=== PATIENT | female | born 2005 | race African-American/Black ===

== ENCOUNTER 2024-03-18 22:09 | Emergency (ER) | payer OTHER ==
[2024-03-18 22:29] VITALS: O2SAT 98
--- NOTE | 2024-03-18 22:54 | ED Physician Documentation ---
PD HPI LOWER EXT INJURY - Stated complaint Stated Complaint: LT ANKLE PX - Chief complaint Chief Complaint: Trauma Ext - History obtained from History obtained from: Patient - Additional information Additional information: 18-year-old female presents for evaluation of left ankle pain and swelling. States that she twisted her ankle while going down a hill. Notes pain with ambulation, swelling to left aspect of ankle. Denies other accident or injury Review of Systems Constitutional: denies: Fever, Chills Musculoskeletal: reports: Joint pain, Joint swelling. denies: Neck pain, Back pain, Extremity pain, Extremity swelling Neurologic: denies: Generalized weakness, Focal weakness, Numbness PD PAST MEDICAL HISTORY - Past Medical History Past Medical History: No - Past Surgical History Past Surgical History: Yes /OPTICAL ENGINEER: Breast reduction - Present Medications Home Medications: Ambulatory Orders Medication Instructions Recorded Confirmed No Known Home Medications 03/18/24 03/18/24 - Allergies Allergies/Adverse Reactions: Allergies Allergy/AdvReac Type Severity Reaction Status Date / Time No Known Drug Allergies Allergy Verified 03/18/24 22:19 - Social History Does the pt smoke?: No Smoking Status: Former smoker Does the pt drink ETOH?: No Does the pt have substance abuse?: No - Immunizations Immunizations are current?: Yes - POLST Patient has POLST: No PD ED PE NORMAL - Vitals Vital signs reviewed: Yes - General General: Alert and oriented X 3, No acute distress, Well developed/nourished - Respiratory Respiratory: No respiratory distress - Derm Derm: Normal color, Warm and dry, No rash - Extremities Extremities: Other (Left lateral malleoli are tenderness to palpation, palpable DP pulses, sensation and movement intact) - Neuro Neuro: Alert and oriented X 3, immigration case manager 2-12 intact, No motor deficit, Normal speech Results - Vitals Vitals: Vital Signs - 24 hr 03/18/24 03/19/24 22:15 00:22 Temperature 36.8 C Heart Rate 82 78 Respiratory 16 16 Rate Blood Pressure 138/68 H 128/71 O2 Saturation 98 98 Oxygen O2 Source Room air PD Medical Decision Making - ED course Complexity details: reviewed results, re-evaluated patient, considered differential, d/w patient ED course: Left ankle pain. Swelling noted to left lateral malleolus. X-ray showed no acute fracture. Patient given Tylenol and ice pack. Placed in Ruslan wrap bandage. Offered crutches, but patient declined stating that she lives [place] a hill. She requested a walking boot for comfort, which was ordered. Rice instructions counseled at bedside. Departure - Departure Disposition: 01 Home, Self Care Clinical Impression: Ankle sprain Condition: Stable Instructions: ED Sprain Ankle W X Ray Comments: Your x-rays today did not show any fracture. You may take Tylenol and ibuprofen as needed for pain. Apply ice to areas of swelling. Elevate your extremity above heart level to help decrease swelling. Forms: PCP List Discharge Date/Time: 03/19/24 00:22
[2024-03-18] MEDS: ACETAMINOPHEN 325 MG TABLET PO STA (23:02)
--- NOTE | 2024-03-19 00:06 | XRAY Report ---
PROCEDURE: Ankle 3+V LT INDICATIONS: twisted L ankle, c/o pain swelling TECHNIQUE: 2 views of the ankle were acquired. COMPARISON: None. FINDINGS: Bones: No fractures or dislocations. Ankle mortise is normally aligned. No suspicious bony lesions . Soft tissues: No tibiotalar joint effusion. Achilles tendon appears normal. Prominent soft tissue swelling over the lateral malleolus. IMPRESSION: No acute bony abnormality. Soft tissue swelling prominent over the lateral malleolus. Reviewed by: Nam Crawford MD on 03/19/2024 12:05 AM PDT Approved by: Nam Crawford MD on 03/19/2024 12:05 AM PDT Station ID: [id number]
[2024-03-19 00:24] VITALS: BP 128/71
== END 2024-03-19 00:22 | disposition home or self-care (01) ==
LOC: ED 22:09
DX: S93.402A Sprain of unspecified ligament of left ankle, initial encounter (principal); X50.1XXA Overexertion from prolonged static or awkward postures, initial encounter
CPT/HCPCS: 73610; 99283; A9270

== ENCOUNTER 2024-11-21 20:09 | Inpatient (IN) ==
[2024-11-21] MEDS ORDERED: OXYTOCIN/SODIUM CHLORIDE 500 ML IV PRN (21:29)
[2024-11-21] MEDS ORDERED: lidocaine 1% 20 ML MDV ID PRN (21:29)
[2024-11-21] MEDS ORDERED: hydrALAZINE INJ 20 MG/ML VIAL IVP PRN ×2 (21:29)
[2024-11-21] MEDS ORDERED: LABETALOL 20 MG/4 ML SYRINGE IVP PRN ×3 (21:29)
[2024-11-21] MEDS ORDERED: NIFEdipine 10 MG CAPSULE PO PRN (21:29)
[2024-11-21] MEDS ORDERED: CARBOPROST TROMETHAMINE 250 MCG/ML VIAL IM PRN (21:29)
[2024-11-21] MEDS ORDERED: miSOPROStoL 200 MCG TABLET BC PRN (21:29)
[2024-11-21] MEDS ORDERED: SODIUM CHLORIDE FLUSH 0.9% 10 ML SYRINGE IVP PRN (21:29)
[2024-11-21] MEDS ORDERED: LACTATED RINGERS 1,000 ML IV PRN (21:29)
[2024-11-21] MEDS ORDERED: OXYTOCIN 10 UNIT/ML VIAL IM PRN (21:29)
--- NOTE | 2024-11-21 21:29 | HISTORY & PHYSICAL EXAMINATION ---
Admit History Smoking Status: Former smoker Meds/Allgy Home Medications Ambulatory Orders Medication Instructions Recorded Confirmed vits no.126-ferrous fum tab PO .DAILY 05/26/24 11/20/24 28 mg iron-folic acid 800 mcg tablet (Classic ) Allergies Allergies Allergy/AdvReac Type Severity Reaction Status Date / Time Pork/Porcine Containing Allergy Respiratory Verified 11/13/24 11:17 Products PFSH Active Problems All Active Problems (Updated 11/21/24 @ 21:33 by Martha Ball CNM, KRISH) Pre-eclampsia during in third trimester, antepartum (Acute) Isolated proteinuria (Acute) Supervision of normal first (Acute) Positive test (Acute) Medical History Medical History (Updated 11/21/24 @ 21:33 by Martha Ball CNM, KRISH) Encounter for other specified screening Urinary tract infection Depression Surgical History Surgical History (Updated 05/26/24 @ 14:04 by Vandana Domínguez RN) History of bilateral breast reduction surgery Family History Family History (Updated 05/26/24 @ 14:05 by Vandana Domínguez RN) Mother Cervical cancer Maternal grandmother Breast cancer Paternal grandmother Breast cancer Maternal grandfather Diabetes Paternal grandfather Diabetes Social History Social History (Updated 05/26/24 @ 14:06 by Vandana Domínguez RN) Smoking Status: Former smoker Second hand tobacco smoke exposure: No Do you dip or chew tobacco?: No Do you vape?: No Living arrangement: At home Living Condition: With spouse/s.o. Level: Independent Do you feel safe in your home environment?: Yes Suffered physical, verbal, emotional, or financial abuse?: No History of Abuse: No ETOH Use: None Substance Use: denies use Are you sexually active?: Yes Control Method: None Sexual Practice Notes: Currently Occupation: Homemaker. Previously a caregiver POLST Patient has POLST: No Plan for Labor Plan For Labor I expect patient to be DC'd or transferred within 96 hours.: Yes Plan for Labor: Devaughn is a 19yo @ 36.6wks gestation by LMP c/w at home IUI. She reports a rare contraction but denies any consistent contractions. She denies vaginal bleeding or leakage of fluid. She reports +FM. She denies headaches, visual disturbances, RUQ ore epigastric pain. Upon arrival cervix is 1/50/-3 and vertex with intact membranes. FHR demonstrates a Category I pattern. Her has been complicated by isolated proteinuria with onset at 32wks. She was referred to [facility] at that time and the below recommendations were given: Recommendations: -Monitor for s/sx of preeclampsia, if BP elevated >140/90, repeat PEC lab and PCR -If PCR or 24hr urine >3g, may need to consider LMWH to decrease risk of VTE -Consider 3hr GTT secondary to elevated 1hr (139) (completed 11/10/2024 and WNL) -No indication for testing at this time -Nephrology referral: consider intensive kidney work up with possible renal biopsy -Delivery at term -Continue routine care -PCR q visit She had her 1st elevated BP at [facility] 11/19/2024 after she was sent there for rule out rupture of membranes due [facility]. The ROM was negative however she was noted to have elevated blood pressure for the first time measuring 143/92. She was seen in the clinic the following day and her second elevated BP 11/20/2024 in clinic was 146/83. Secondarily she meets criteria for preeclampsia without severe features. Consult with information resources manager physician who recommends pre-induction cervical ripening in the evening of 36.6wks gestation, which is today. Reviewed [facility] recommendation to consider anticoagulation with PCR >3g and Dr. Jacob recommends not initiating at this time due to admission with induction of labor and impending delivery. Will pay close attention to patient mobility status and initiate SCDs with epidural. She will be admitted to [facility] for pre-induction cervical ripening with misoprostol per patient preference. We discussed cervical ripening balloon placement and pt declines at this time. She states she would prefer to initiate oral misoprostol x12hrs and reevaluate cervical exam tomorrow morning with placement of cervical ripening balloon at that time if needed. She is supported by her partner, her mom, and her sister. Dating criteria: LMP: 03/08/2024 MÓNICA by LMP: 12/13/2024 IUI: 03/19/2024 Final MÓNICA: 12/13/2024 Allergies: NKDA RX PNV PROBLEMS: -Proteinuria: -[facility] consult @ 33.5wks. Recommendations: -Monitor for s/sx of preeclampsia, if BP elevated >140/90, repeat PEC lab and PCR -If PCR or 24hr urine >3g, may need to consider LMWH to decrease risk of VTE -Consider 3hr GTT secondary to elevated 1hr (139) (completed 11/10/2024 and WNL) -No indication for testing at this time -Nephrology referral: consider intensive kidney work up with possible renal biopsy -Delivery at term -Continue routine care -PCR q visit Medical Hx: depression Surgical Hx: bilateral breast reduction Social Hx: Former smoker. No ETOH or IVDA. Reports she is safe at home. Partner Mo is active duty [place]. She is currently a homemaker (previously a caregiver). Family Hx: Cervical cancer - mother; Breast cancer - MGM, PGM; Diabetes - MGF, PGF Pre- weight: 227 BMI: 34.5 Blood type: O+ Antibody screen: Negative CBC: PLT 296 HCT 37.7 HGB 12.3 Rubella: Immune VZV: immune HBsAg: neg HepC: NR RPR/AB-EIA: NR HIV: NR Flu: 07/25/2024 COVID: PAP: (age) GC/CT: 06/29/2024 negative HSV: Denies in self or partner. Genetic Testing: NIPT negative AFP negative FAS: Placenta: Posterior Cord: 3VC w/ MARGINAL CORD INSERTION [place]: 14.7 EFW: 615g 86%tile 10/30 U/S @33.5wks with MFM -Marginal cord insertion 1.1cm from placental age -EFW 74%tile 50gm GCT: 139 3 hr GTT: F- 91; 1hr 165; 2hr 132 ; 3hr 75 (WNL) TDAP: 09/26/2024 Breast Pump: 09/26/2024 3rd trimester CBC 338 36.1/11.7 3rd trimester RPR NR Delivery plan: Hopeful for unmedicated delivery with nitrous, open to epidural; contraception: same sex partner Physical exam: Normocephalic, atraumatic Heart RRR w/o M/G/R Lungs CTAB Abdomen gravid, soft, nontender EFW 3400g FHR baseline 140s, moderate variablity, + accels, no decels No contractions appreciated via tocometry SVE 1/50/-3, vertex. Intact membranes. Bilateral LE's trace edema. DTRs 1+, no clonus. Mood is good. Assessment: 19yo @ 36.6wks gestation Pre-eclampsia without severe features GBS -pending FHR Category I Plan: Admit to [facility] for pre-induction cervical ripening with 50mcg BC misoprostol q 4hrs. Consider cervical ripening balloon after 12 hours of misoprostol or sooner PRN. Pre-eclampsia labs ordered now-results pending. Encouraged ambulation and position changes. Jacuzzi PRN. Nitrous oxide PRN. Epidural per maternal request - SCDs with epidural. Anticipate .
[2024-11-21 21:43] LABS: BASOPHILS % (AUTO) 0.1 %; EOSINOPHILS # (AUTO) 0.1 10^3/uL (0.0-0.7); EOSINOPHILS % (AUTO) 1.2 %; HCT - HEMATOCRIT 35.5 % (37.0-47.0); HGB - HEMOGLOBIN 11.3 g/dL (12.0-16.0); LYMPHOCYTES # (AUTO) 1.9 10^3/uL (1.5-3.5); LYMPHOCYTES % (AUTO) 24.8 %; MEAN CORPUSCULAR HEMOGLOBIN 27.6 pg (27.0-31.0); MEAN CORPUSCULAR HGB CONC 31.8 g/dL (32.0-36.0); MEAN CORPUSCULAR VOLUME 86.6 fL (81.0-99.0); MEAN PLATELET VOLUME 9.1 fL (7.9-10.8); MONOCYTES # (AUTO) 0.6 10^3/uL (0.0-1.0); MONOCYTES % (AUTO) 7.7 %; NEUTROPHILS # (AUTO) 4.9 10^3/uL (1.5-6.6); NEUTROPHILS % (AUTO) 65.7 %; PLT - PLATELET COUNT 323 10^3/uL (130-450); RED CELL DISTRIBUTION WIDTH 14.9 % (12.0-15.0); WHITE BLOOD COUNT 7.5 x10^3/uL (4.8-10.8)
[2024-11-21 21:48] LABS: ALBUMIN/GLOBULIN RATIO 0.9 (1.0-2.2); BILIRUBIN,TOTAL 0.3 mg/dL (0.2-1.0); CALCIUM 9.1 mg/dL (8.5-10.3); CREATININE 0.6 mg/dL (0.6-1.3); POTASSIUM 4.2 mmol/L (3.5-4.5); TOTAL PROTEIN 6.4 g/dL (6.4-8.9)
[2024-11-21] MEDS: miSOPROStoL 100 MCG TABLET BC SCH (22:11)
[2024-11-21 22:20] LABS: CREATININE,URINE 92.4 mg/dL
[2024-11-21 22:30] LABS: PROTEIN/CREATININE RATIO,URINE 4.2 (<=0.2)
--- NOTE | 2024-11-22 10:44 | PROVIDER PROGRESS NOTE ---
Labor Progress Note Labor Progress Note Labor Progress Note/Additional Text: S: Slept well last night. Open to cervical ripening balloon placement if needed. Denies RIVERA, visual disturbances, RUQ or epigastric pain. Partner Mo supportive at the bedside. O: FHR baseline 140s, moderate variability, + accels, no decels Contractions palpate mild occasionally with soft resting tone SVE 2/50/-3. Vertex. Cervical ripening balloon placed with 80cc intrauterine and 80cc vaginal A: 19yo @ 37.0wks gestation Pre-eclampsia without severe features GBS - pending FHR Category I P: Cervical ripening balloon x 12hrs. Encouraged ambulation and position changes. Jacuzzi PRN. Nitrous oxide PRN. Epidural per maternal request - SCDs with epidural. Catheter sample PCR with placement of bolivar s/p epidural placement. Anticipate .
[2024-11-22] MEDS: fentaNYL 100 MCG/2 ML VIAL IVP PRN (11:05)
--- NOTE | 2024-11-22 11:32 | PHARMACY PROGRESS NOTE ---
Best Possible Medication History Admit Date and Time: 11/21/249 Home Medications Medication Instructions Recorded Confirmed Type vits no.126-ferrous fum 1 tab PO DAILY 05/26/24 11/22/24 History 28 mg iron-folic acid 800 mcg tablet (Classic ) Processed by: Pharmacy (Medication reconciliation completed by Diabetes Education CoordinatorCatarina) Medications reviewed in ED?: No Medication History completed: Yes Patient Interview: Completed Secondary Source(s): Insurance records [facility] Statement: As the person ultimately responsible for medication therapy, providers are able to order a medication from an existing home medication list in [facility] via the "Reconcile Routine" prior to Confirmation of that medication by software support technician. Such practice is discouraged except when the physician, in their clinical judgment, deems that a medical need exists for a medication without regard to previous use.
[2024-11-22] MEDS: LACTATED RINGERS 500 ML IV ONE (16:00)
[2024-11-22] MEDS ORDERED: LIDOCAINE 2%-EPI 1:100000 20 ML MDV ONE (16:16)
[2024-11-22] MEDS ORDERED: ROPIVACAINE 0.2% 200 MG/100 ML BAG EP ONE (16:16)
--- NOTE | 2024-11-22 16:25 | PROVIDER PROGRESS NOTE ---
Labor Progress Note Labor Progress Note Labor Progress Note/Additional Text: S: Patient becoming increasingly uncomfortable. S/P 3 doses of misoprostol. Supportive partner and family at beside. O: Category I tracing. FHT 145, moderate variability, + accelerations, no significant decelerations. Contractions q 1-6, palpate moderately, soft uterine resting tone. BP 140-150's/80's-90's. No severe range pressures. 6/80/-2 A: Active labor Medical induction of labor for preeclampsia significant urine proteinurea P: AROM, large amount of clear fluid. Anesthesia notified for placement of epidural for pain management. continuous monitoring continues Will encouraged rotation in bed on peanut ball after patient is comfortable with epidural. Anticipate .
--- NOTE | 2024-11-22 17:22 | ANESTHESIA PROCEDURE NOTE ---
Pre-Anesthesia VS, & Labs Diagnosis Surgical Diagnosis:: 37 weeks induction, for protienuria, htn Procedure Procedure: placement of labor epidural Vitals Height (in): 5 ft 8 in Weight (kg): 122 kg Body Mass Index: 40.8 BMI Classification: Morbidly Obese NPO Last Fluid Intake: current Is Patient ?: Yes Estimated Due Date:: 11/22/24 Lab Results Current Lab Results: Laboratory Tests 11/21/24 21:20: WBC 7.5, RBC 4.10 L, Hgb 11.3 L, Hct 35.5 L, MCV 86.6, MCH 27.6, MCHC 31.8 L, RDW 14.9, Plt Count 323, MPV 9.1, Neut # (Auto) 4.9, Lymph # (Auto) 1.9, [place] # (Auto) 0.6, Eos # (Auto) 0.1, Baso # (Auto) 0.0, Absolute Nucleated RBC 0.00, Nucleated RBC % 0.0, Sodium 136, Potassium 4.2, Chloride 106, Carbon Dioxide 23, Anion Gap 7.0, BUN 9, Creatinine 0.6, Estimated GFR (MDRD) 153, Glucose 102, Calcium 9.1, Total Bilirubin 0.3, AST 22, ALT 26, Alkaline Phosphatase 117, Total Protein 6.4, Albumin 3.0 L, Globulin 3.4, A lbumin/Globulin Ratio 0.9 L, Blood Type O POSITIVE, Antibody Screen NEGATIVE Lab results reviewed: Yes 11/21/24 21:20 11/21/24 21:20 Meds/Allgy Home Medications Ambulatory Orders Medication Instructions Recorded Confirmed vits no.126-ferrous fum 1 tab PO DAILY 05/26/24 11/22/24 28 mg iron-folic acid 800 mcg tablet (Classic ) Allergies Allergies Allergy/AdvReac Type Severity Reaction Status Date / Time Pork/Porcine Containing Allergy Respiratory Verified 11/13/24 11:17 Products PFSH Active Problems All Active Problems Pre-eclampsia during in third trimester, antepartum (Acute) Isolated proteinuria (Acute) Supervision of normal first (Acute) Positive test (Acute) Medical History Medical History Encounter for other specified screening Urinary tract infection Depression Surgical History Surgical History History of bilateral breast reduction surgery Family History Family History Mother Cervical cancer Maternal grandmother Breast cancer Paternal grandmother Breast cancer Maternal grandfather Diabetes Paternal grandfather Diabetes Social History Social History Smoking Status: Never smoker Second hand tobacco smoke exposure: No Do you dip or chew tobacco?: No Do you vape?: No Living arrangement: At home Living Condition: With spouse/s.o. Level: Independent Do you feel safe in your home environment?: Yes Suffered physical, verbal, emotional, or financial abuse?: No History of Abuse: No ETOH Use: None Substance Use: denies use Are you sexually active?: Yes Control Method: None Sexual Practice Notes: Currently Occupation: Homemaker. Previously a caregiver POLST Patient has POLST: No Anesthesia Exam (Expanded) Exam General: Alert and No acute distress Dental: WNL Mouth Openin Fingerbreadth Neck Mobility: Normal Mallampati classification: II Thyromental Distance: 4-6 cm Plan Plan Anesthesia Type: Epidural Consent for Procedure(s) Verified and Reviewed: Yes Code Status: Attempt Resuscitation ASA Classification ASA classification: 2-Mild systemic disease Is this case an emergency?: No
[2024-11-22] MEDS ORDERED: METOCLOPRAMIDE 10 MG/2 ML VIAL IVP PRN (17:23)
[2024-11-22] MEDS ORDERED: ONDANSETRON 4 MG/2 ML VIAL IVP PRN (17:23)
[2024-11-22] MEDS ORDERED: diphenhydrAMINE INJ 50 MG/ML VIAL IVP PRN (17:23)
[2024-11-22] MEDS ORDERED: NALBUPHINE 10 MG/ML AMP IVP PRN (17:23)
[2024-11-22] MEDS ORDERED: ePHEDrine 50 MG/ML VIAL IVP PRN (17:23)
[2024-11-22] MEDS ORDERED: NALOXONE 0.4 MG/ML VIAL IVP PRN (17:23)
[2024-11-22 17:56] LABS: BASOPHILS % (AUTO) 0.1 %; EOSINOPHILS % (AUTO) 0.3 %; HCT - HEMATOCRIT 35.7 % (37.0-47.0); HGB - HEMOGLOBIN 11.5 g/dL (12.0-16.0); LYMPHOCYTES # (AUTO) 1.2 10^3/uL (1.5-3.5); LYMPHOCYTES % (AUTO) 13.8 %; MEAN CORPUSCULAR HEMOGLOBIN 27.8 pg (27.0-31.0); MEAN CORPUSCULAR HGB CONC 32.2 g/dL (32.0-36.0); MEAN CORPUSCULAR VOLUME 86.4 fL (81.0-99.0); MEAN PLATELET VOLUME 8.9 fL (7.9-10.8); MONOCYTES # (AUTO) 0.6 10^3/uL (0.0-1.0); MONOCYTES % (AUTO) 6.8 %; NEUTROPHILS # (AUTO) 6.9 10^3/uL (1.5-6.6); NEUTROPHILS % (AUTO) 78.1 %; PLT - PLATELET COUNT 321 10^3/uL (130-450); RED BLOOD COUNT 4.13 10^6/uL (4.20-5.40); RED CELL DISTRIBUTION WIDTH 14.7 % (12.0-15.0); WHITE BLOOD COUNT 8.8 x10^3/uL (4.8-10.8)
[2024-11-22 18:09] LABS: ALBUMIN 2.9 g/dL (3.2-5.5); ALBUMIN/GLOBULIN RATIO 0.8 (1.0-2.2); BILIRUBIN,TOTAL 0.4 mg/dL (0.2-1.0); CALCIUM 9.3 mg/dL (8.5-10.3); CREATININE 0.7 mg/dL (0.6-1.3); POTASSIUM 4.4 mmol/L (3.5-4.5); TOTAL PROTEIN 6.6 g/dL (6.4-8.9)
[2024-11-22] MEDS: SODIUM CHLORIDE FLUSH 0.9% 10 ML SYRINGE IVP SCH (18:33)
[2024-11-22] MEDS: OXYTOCIN/SODIUM CHLORIDE 500 ML IV SCH (18:34)
--- NOTE | 2024-11-22 20:26 | PROVIDER PROGRESS NOTE ---
Labor Progress Note Labor Progress Note Labor Progress Note/Additional Text: SVE /-1, ruptured. Very comfortable with epidural. Frustrated by the limited labor progression the last few hours. worried the epidural has slowed down her labor. Reassured she is making cervical change. RN team having difficulty tr acing contractions. IUPC placed and patient and family felt reassuance once contractions were identified by IUPC.
[2024-11-22] MEDS: AMPICILLIN 2 GM in SODIUM CHLORIDE 0.9% MINIBAG 100 ML IV ONE (20:27)
[2024-11-23] MEDS: AMPICILLIN 1 GM in SODIUM CHLORIDE 0.9% MINIBAG 100 ML IV SCH (00:37)
[2024-11-23] MEDS: ROPIVACAINE 0.2% 200 MG/100 ML BAG EP PRN (02:12)
[2024-11-23] MEDS: LACTATED RINGERS 1,000 ML IV PRN (02:20)
[2024-11-23] MEDS ORDERED: ACETAMINOPHEN 500 MG TABLET PO ONE (02:54)
[2024-11-23] MEDS: ACETAMINOPHEN 500 MG TABLET PO PRN ×2 (03:05→20:18)
[2024-11-23] MEDS: ONDANSETRON 4 MG/2 ML VIAL IVP PRN (04:55)
[2024-11-23] MEDS ORDERED: LIDOCAINE 2%-EPI 1:100000 20 ML MDV ONE (05:14)
[2024-11-23] MEDS ORDERED: ROPIVACAINE 0.2% 200 MG/100 ML BAG EP ONE (05:14)
--- NOTE | 2024-11-23 05:54 | PROVIDER PROGRESS NOTE ---
Labor Progress Note Labor Progress Note Labor Progress Note/Additional Text: Patient was having significant discomfort at the site of her epidural and has asked for it to be removed. She was frustrated and felt that the epidural had slowed her labor progress. Reviewed that her labor has continued to progress. Di scussed at length that her pain will likely come back rapidly, and it will be difficult for her body to adjust to the pain returning that quickly. She verbalized understanding and continued to express her desire for the epidural to be removed. Prior to this, she had asked that the IUPC be removed as well as it was causing her discomfort. Without IUPC it has been difficult for nursing to titrate her pitocin as contractions have not been consistently/easily traceable with external monitoring and it was difficult to titrate her pitocin/determine adequate pattern. She had also respectfully asked for a change in her nursing care team. She had good pain control for about 75 minutes following cessation of epidural and dozed. However the pain returned quickly and she became nauseated and had several near syncopal events while lying in bed. Her heart rate, pulse oximetry and BP remained WNL during this time. Her family shared that she often "faints" with excessive heat or pain, more so prior to but did have an episode during . Her has a spray bottle available and is able to mist her with cool water and that has consistently resolved the syncopal episodes in the past. However she was arousable and was able to verbalized orientation. She tried the nitrous oxide during this time with minimal relief. SVE /0, requesting a c/s for pain management. Discussed that her labor is progressing, her baby and her are stable and asked the rationale she desires a c/s. She report the pain was too intense and she wanted a c/s for pain relief. I had asked if her pain was better controlled if she would still prefer a c/s and she stated she just wanted the pain to be better. Anesthesia called to replace the epidural. Upon ROOMING HOUSE INSPECTOR's arrival she had become grossly uncomfortable. Offered repeat SVE prior to attempted replacement. She declined SVE until epidural replaced. She understood that she would need to sit still for safety during replacement. She felt that she would be able to.
[2024-11-23] MEDS: TRANEXAMIC ACID IN NACL 1,000 MG/100 ML BAG IV PRN (07:36)
--- NOTE | 2024-11-23 09:06 | DELIVERY NOTE ---
Delivery Note Delivery Comments (Free Text/Narrative) Delivery Comments (Free Text/Narrative): This 19 -year-old, presented at 36+6 weeks gestation by known LMP for preinduction cervical ripening at 36+6 weeks in stable condition on 11/21/2024 @ 1999. Cervix was 1/50% and Vertex presentation by hugo's and exam. GBS unresulted in labor but resulted negative post delivery, adequately treated. Cervical ripening and induction as follows: Misoprostol X 3 doses, cervical ripening balloon placement and expulsion, followed by oxytocin administration with max infusion of 5 mu/min. FHR pattern demonstrated 140 baseline in a category I prior to second stage. She did have a single isolated maternal temp of 100.4 and was given 1000mg PO tylenol, with no further elevated temperatures. No odor noted to amniotic fluid, no tachycardia, CBC twelve hour prior to delivery with WBC 8.8, no diagnosis of chorioamnitis. Epidural placed and removed and replaced upon request. AROM occurred 11/22/2024 @ 1609. She then progressed to complete/complete and second stage began 11/23/2024 @ 0701. : Normal spontaneous vaginal delivery of a viable male infant on 11/23/2024 @ 0730. No nuchal cord, but cord was wrapped loosely around the arm (delivered through). The was placed on maternal abdomen, stimulated, dried and placed skin to skin. Apgars 7&9 @ 1&5 minutes. The umbilical cord was allowed to stop pulsating at which time it was doubly clamped by delivering provider and cut by baby's second Mom, Mo. 3VC. Cord blood was obtained. Fundal massage and gently cord traction applied for active management of the third stage, placenta delivered spontaneously and intact and appeared normal. 400cc EBL. Placenta was not sent to pathology. Pitocin administered via IV for hemostasis and allowed to run freely. Increased bleeding immediately following placenta delivery, and 1g of TXA was administered at 0736. Uterine massage was performed until uterus was deemed firm. weight 2898g. Inspection of the perineum noted to be intact. No repair. Upon re-inspection the patient was hemostatic. Uterus again massaged and found to be firm. Needle and sponge counts were correct. Uterine fundus firm and there is no excessive bleeding. Tissues well approximated. Skin to skin initiated. Family bonding well. Both mother and baby are in stable condition.
[2024-11-23] MEDS ORDERED: LABETALOL 5 MG/1 ML 20 ML MDV IVP PRN (10:33)
[2024-11-23] MEDS ORDERED: LABETALOL 20 MG/4 ML SYRINGE IVP PRN ×2 (10:33)
[2024-11-23] MEDS ORDERED: OXYTOCIN/SODIUM CHLORIDE 500 ML IV PRN (10:33)
[2024-11-23] MEDS ORDERED: NIFEdipine 10 MG CAPSULE PO PRN (10:33)
[2024-11-23] MEDS ORDERED: NALOXONE 0.4 MG/ML VIAL IVP PRN (10:33)
[2024-11-23] MEDS ORDERED: hydrALAZINE INJ 20 MG/ML VIAL IVP PRN ×2 (10:33)
[2024-11-23] MEDS ORDERED: SIMETHICONE CHEW 80 MG TABLET PO PRN (10:33)
[2024-11-23] MEDS: ACETAMINOPHEN 500 MG TABLET PO SCH (11:08)
[2024-11-23] MEDS: IBUPROFEN 600 MG TABLET PO PRN (11:08)
[2024-11-23] MEDS: PRENATAL VITAMIN TABLET PO SCH (11:13)
[2024-11-23] MEDS: DOCUSATE SODIUM 100 MG CAPSULE PO SCH (20:19)
--- NOTE | 2024-11-24 05:05 | PROVIDER PROGRESS NOTE ---
Subjective Subjective Subjective: HPI: PPD #1 Denies headache, change in vision, nausea/vomiting or right upper quadrant pain. BP 130's-140's/80-90's Most recent BP: 136/93 @ 0430 today Most recent labs: 11/22/2024 @ 1748 PLT: 321 Serum Creatinine: 0.7 AST: 25 ALT: 24 11/24/2024 @ 0900 (ordered/pending) Physical Exam Constitutional: alert, no acute distress, well hydrated, well developed, well nourished, appropriate dress. Cardiovascular: 2+ edema bilateral lower extremities Respiratory: no respiratory distress. Abdomen: nondistended, nontender, no guarding. Neuro: 1+ DTRs, no clonus Psych: affect and mood appropriate, normal interaction, good eye contact. Assessment & plan 19 yo PPD #1 s/p viable male at 37+1 weeks gestation following medical IOL. Intact perineum Routine care and support Preeclampsia without severe features Labs ordered/pending start labetalol 100mg BID while in hospital, discharge to home likely Wednesday with planned short interval follow up in clinic for BP check and significant pre-eclamptic precautions. Current Medications Current Medications Current Medications: Current Medications Generic Name Dose Route Start Last Admin Trade Name Freq PRN Reason Stop Dose Admin Acetaminophen 1,000 mg 11/23/24 06:00 11/23/24 11:08 Acetaminophen 500 Mg Tablet PO 11/24/24 05:59 1,000 mg ONCE JEFF Administration Acetaminophen 1,000 mg 11/23/24 10:33 11/23/24 20:18 Acetaminophen 500 Mg Tablet PO 1,000 mg Q8HR PRN Administration Mild Pain or Fever>38C(100.4F) Carboprost Tromethamine 250 mcg 11/21/24 21:29 Carboprost Tromethamine 250 Mcg/Ml Vial IM 11/26/24 21:29 Q15M PRN Step 4: Hemorrhage protocol Docusate Sodium 100 mg 11/23/24 21:00 11/23/24 20:19 Docusate Sodium 100 Mg Capsule PO 100 mg BID JEFF Administration Ibuprofen 600 mg 11/23/24 10:33 11/24/24 02:03 Ibuprofen 600 Mg Tablet PO 600 mg Q6HR PRN Administration Moderate Pain (Level 4-6) Lidocaine HCl 20 ml 11/21/24 21:29 Lidocaine 1% 20 Ml Mdv ID 11/26/24 21:29 .ONCE PRN PERINEAL REPAIR Misoprostol 800 mcg 11/21/24 21:29 Misoprostol 200 Mcg Tablet BC 11/26/24 21:29 .ONCE PRN Step 3: Hemorrhage protocol Nifedipine 10 - 20 mg 11/21/24 21:29 Nifedipine 10 Mg Capsule PO Q20M PRN SBP >160 or DBP >110 Protocol Oxytocin 10 unit 11/21/24 21:29 Oxytocin 10 Unit/Ml Vial IM 11/26/24 21:29 .ONCE PRN Step one: If no IV access Multivit/Folic Acid/Iron 1 tab 11/23/24 08:00 11/23/24 11:13 Vitamin Tablet PO 1 tab DAILYWM JEFF Administration Simethicone 80 mg 11/23/24 10:33 Simethicone Chew 80 Mg Tablet PO TID PRN Gas Objective Vital Signs/Intake & Output Vital Signs: Vital Signs x48h Temp Pulse Resp BP Pulse Ox 11/24/24 04:15 36.4 C L 70 18 136/93 H 97 11/24/24 00:00 37.4 C 86 18 143/69 H 98 11/23/24 22:45 148/66 H Intake & Output: Intake & Output 11/21/24 11/22/24 11/23/24 11/24/24 23:59 23:59 23:59 23:59 Intake Total 111 / 111 689 / 689 Output Total 325 / 325 3075 / 3075 Balance -214 / -214 -2386 / -2386 Weight (kg) 269 lb 5.984 oz 268 lb 15.423 oz Lab Results 11/22/24 17:48 11/22/24 17:48
[2024-11-24 08:44] LABS: BASOPHILS % (AUTO) 0.1 %; EOSINOPHILS # (AUTO) 0.1 10^3/uL (0.0-0.7); EOSINOPHILS % (AUTO) 1.2 %; HCT - HEMATOCRIT 28.7 % (37.0-47.0); HGB - HEMOGLOBIN 9.4 g/dL (12.0-16.0); LYMPHOCYTES # (AUTO) 2.7 10^3/uL (1.5-3.5); MEAN CORPUSCULAR HEMOGLOBIN 28.4 pg (27.0-31.0); MEAN CORPUSCULAR HGB CONC 32.8 g/dL (32.0-36.0); MEAN CORPUSCULAR VOLUME 86.7 fL (81.0-99.0); MONOCYTES # (AUTO) 0.7 10^3/uL (0.0-1.0); MONOCYTES % (AUTO) 6.8 %; NEUTROPHILS # (AUTO) 6.7 10^3/uL (1.5-6.6); NEUTROPHILS % (AUTO) 65.1 %; PLT - PLATELET COUNT 291 10^3/uL (130-450); RED BLOOD COUNT 3.31 10^6/uL (4.20-5.40); WHITE BLOOD COUNT 10.3 x10^3/uL (4.8-10.8)
[2024-11-24] MEDS: LABETALOL 100 MG TABLET PO SCH (08:56)
[2024-11-24 09:03] LABS: ALBUMIN 2.5 g/dL (3.2-5.5); ALBUMIN/GLOBULIN RATIO 0.8 (1.0-2.2); BILIRUBIN,TOTAL 0.3 mg/dL (0.2-1.0); CREATININE 0.6 mg/dL (0.6-1.3); POTASSIUM 3.9 mmol/L (3.5-4.5); TOTAL PROTEIN 5.6 g/dL (6.4-8.9)
[2024-11-24 17:09] VITALS: O2SAT 98
[2024-11-25 09:26] VITALS: BP 131/79; TEMP 98.1
--- NOTE | 2024-11-25 09:44 | Discharge Summary ---
Discharge Summary Admit Date: 11/21/24 Discharge Date: 11/25/24 HPI History of Present Illness: Date of Admission: 11/21/2024 Date of Discharge: 11/25/2024 Diagnosis on admission: 19yo @ 36.6wks gestation Pre-eclampsia without severe features GBS -pending FHR Category I Diagnosis on Discharge 19 yo S/P 11/23/2024 Preeclampsia without severe features GBS resulted negative/ adequate treatment in labor. Physical exam: Normocephalic, atraumatic Lungs no increased work of breathing Normal uterine involution, FF below umbilicus Small rubra bleeding very little perineal discomfort. Bilateral LE's 2+ edema Mood is good. Brief History: This 19 -year-old, presented at 36+6 weeks gestation by known LMP for preinduction cervical ripening at 36+6 weeks in stable condition on 11/21/2024 @ 2000. Cervix was 1/50% and Vertex presentation by hugo's and exam. GBS unresulted in labor but resulted negative post delivery, adequately treated. Cervical ripening and induction as follows: Misoprostol X 3 doses, cervical ripening balloon placement and expulsion, followed by oxytocin administration with max infusion of 5 mu/min. FHR pattern demonstrated 140 baseline in a category I prior to second stage. She did have a single isolated maternal temp of 100.4 and was given 1000mg PO tylenol, with no further elevated temperatures. No odor noted to amniotic fluid, no tachycardia, CBC twelve hour prior to delivery with WBC 8.8, no diagnosis of chorioamnitis. Epidural placed and removed and replaced upon request. AROM occurred 11/22/2024 @ 1609. She then progressed to complete/complete and second stage began 11/23/2024 @ 0701. : Normal spontaneous vaginal delivery of a viable male on 11/23/2024 @ 0730. No nuchal cord, but cord was wrapped loosely around the arm (delivered through). The was placed on maternal abdomen, stimulated, dried and placed skin to skin. Apgars 7&9 @ 1&5 minutes. The umbilical cord was allowed to stop pulsating at which time it was doubly clamped by delivering provider and cut by baby's second Mom, Mo. 3VC. Cord blood was obtained. Fundal massage and gently cord traction applied for active management of the third stage, placenta delivered spontaneously and intact and appeared normal. 400cc EBL. Placenta was not sent to pathology. Pitocin administered via IV for hemostasis and allowed to run freely. Increased bleeding immediately following placenta delivery, and 1g of TXA was administered at 0736. Uterine massage was performed until uterus was deemed firm. weight 2898g. Inspection of the perineum noted to be intact. No repair. Upon re-inspection the patient was hemostatic. She has been doing well in her course. She is ambulating and tolerating a regular diet. Repeat PreE lab work showed improvement to LFTs and serum creatinine. She is urinating without difficulty and her lochia is normal. Her pain is well controlled without narcotic management. She is exclusively bottle feeding and received a single dose of cabergoline prior to discharge She will be discharged to home today on day 2 and encouraged IBU, tylenol and stool softeners PRN. Rx to pharmacy for BID 100mg labetaolol as initiated during her inpatient stay. She intends to follow up with [facility] on Wednesday11/27/2024 @ 11:30 for BP check. She has been given precautions to call if she has any new or worsening sx such as fevers, chills, abdominal pain, increasing bleeding, or foul smelling vaginal lochia. preeclamptic precautions reviewed in detail as well. encouraged to wear blue PreE risk bracelet upon discharge. VZV:immune Rubella: immune RH: O+ ALLERGIES Allergies Allergy/AdvReac Type Severity Reaction Status Date / Time Pork/Porcine Containing Allergy Respiratory Verified 11/13/24 11:17 Products MEDICATIONS Ambulatory Orders Medication Instructions Recorded Confirmed vits no.126-ferrous fum 1 tab PO DAILY 05/26/24 11/22/24 28 mg iron-folic acid 800 mcg tablet (Classic ) labetalol 100 mg tablet 100 mg PO BID #60 tabs 11/25/24 PHYSICAL EXAM AT DISCHARGE Vital Signs: Vital Signs x48h Temp Pulse Resp BP Pulse Ox 11/25/24 09:26 36.7 C 90 15 131/79 H 98 LABS 11/24/24 08:25 11/24/24 08:25 Discharge Plan Discharge Patient Disposition: Home, Self Care Prescriptions: Continued labetalol 100 mg tablet 100 mg PO BID Qty: 60 2RF Classic 28 mg iron- 800 mcg tablet 1 tab PO DAILY Print Language: Persian Patient Instructions: Bottle Feed How To Follow-up Care: Xochitl Urbina ARNP [Primary Care Provider] -
[2024-11-25] MEDS: CABERGOLINE 0.5 MG TABLET PO ONE (10:41)
--- NOTE | 2024-11-25 16:01 | Labor Flowsheet ---
Labor Flowsheet Datetime Report Generated by CPN: 11/25/2024 16:01 Datetime: 11/25/2024 09:16 VITAL SIGNS NBP Sys/Amina/Mean (mmHg): 131 : 79 : 91 Pulse: 93 Datetime: 11/24/2024 16:49 SpO2 (%): 98 Datetime: 11/23/2024 08:04 Temperature (C): 36.5 Datetime: 11/23/2024 07:35 Medication Comments: txa up Datetime: 11/23/2024 07:31 Stage of : Recovery Datetime: 11/23/2024 07:30 Frequency (min): 1-2.5 Duration (sec): 60-80 Pattern: Normal: <= 5 Contractions in 10 Minutes ASSESSMENT A Monitor Mode: External US FHR Baseline Rate : 135 Variability: Moderate 6-25 bpm Accelerations: 15X15 Decelerations: None Category: Category I LaborFlag: Labor Datetime: 11/23/2024 07:15 UTERINE ACTIVITY Monitor Mode: External Datetime: 11/23/2024 07:10 Amniotic Fluid Odor: Normal Datetime: 11/23/2024 07:09 STAGE 2 Pushing: Urge to Push Pushing Position: Pushing with Contractions Pushing Progress: Descent with Pushing Datetime: 11/23/2024 07:07 Patient Care Comments: Magana out, 50ml urine Datetime: 11/23/2024 07:04 Communication Comments: C Datetime: 11/23/2024 07:01 VAGINAL EXAM Dilatation (cm): 10.0 Effacement (%): 100 Station: 3 Exam by: CNM B Datetime: 11/23/2024 06:55 Comments: Intermittent variables noted with peak of UCs. CNM Burckhardt will be in to assess pt wit hin half hour unless pt awakens and has urge to push. Datetime: 11/23/2024 06:30 Quality: Moderate Resting Tone (Palpate): Relaxed Pitocin Checklist: At Least 1 Acceleration of 15 bpm x 15 Seconds in 30 Minutes or Adequate Variabi lity; No More than 1 Late Deceleration Occurred in Past 30 Minutes; No More than 2 Variable Decelerat ions > 60 Seconds in Duration and decreasing >60 bpm in 30 minutes; No More than 5 Uterine Contractio ns in 10 Minutes for any 20 Minute Interval; Uterus Palpates Soft between Contractions FHR Baseline Changes: No Baseline Change Pain Goal: 4 Anesthesia Level Check: T8- Ribs Datetime: 11/23/2024 06:00 Pain Assessment Comments: snoring softly Datetime: 11/23/2024 05:47 Anesthesia Comments: Partial loading dose/bolus given Datetime: 11/23/2024 05:42 Patient Position/Activity: Left Tilt Datetime: 11/23/2024 05:34 Epidural Procedure: Test Dose Datetime: 11/23/2024 05:30 Contraction Comments: UCs Q 2-3 via palpation and pt's crying out with UCs Pain Relief Measures: PHOTOGRAPHIC ENGINEER Shaw here placing 2nd epidural Pain Coping: Requesting Pain Medication or Epidural; Crying; Writhing Datetime: 11/23/2024 05:23 PROCEDURE TIME OUT Procedure Type: 0523 Datetime: 11/23/2024 05:21 Epidural Positioning: Sitting Datetime: 11/23/2024 05:00 Actions for Decelerations: Provider at bedside. Pain management reviewed. Meds given for naus ea; AMP infusing. Datetime: 11/23/2024 04:55 Antiemetics/Antacids: Zofran (mg) @ 4mg Datetime: 11/23/2024 04:50 Antibiotics: Ampicillin IV 1 Gm Datetime: 11/23/2024 04:33 Pain Location: Back; Right Groin; Left Groin; Right Hip COMMUNICATION Communication: Provider at Bedside Datetime: 11/23/2024 04:19 Monitor Interventions for UA: [place] Adjusted Datetime: 11/23/2024 03:59 PAIN Pain Scale: 5 Pain Presence: Intermittent Pain Type: Contraction Datetime: 11/23/2024 03:44 Respirations: 20 Temperature Route: Oral Datetime: 11/23/2024 03:21 Epidural Procedure Other: Cath Removed Datetime: 11/23/2024 02:22 MEDICATIONS Pitocin (milliunits): Increased to @ Datetime: 11/23/2024 00:00 Resting Tone IUP (mmHg): 5 [place] Units (mmHg): 260 Datetime: 11/22/2024 20:00 MATERNAL ASSESSMENT Level of Consciousness: Alert DTR's/Clonus: DTRs 2+ Headache: Denies Breath Sounds, Left: Clear and Equal Breath Sounds, Right: Clear and Equal Nausea/Vomiting: Denies Datetime: 11/22/2024 18:17 Vaginal Bleeding: Normal Show Cervix, Consistency: Soft Cervix, Position: Anterior PATIENT CARE Procedures: Sterile Vag Exam Hygiene: Marcela Care; Underpad Changed; Peripad Changed I/O Interventions: Magana Cath Inserted Datetime: 11/22/2024 16:37 Procedure Verify: Correct Patient Identity; Correct Side and Site are Marked; Accurate Procedure Co nsent Form; Agreement on Procedure to be Done; Correct Patient Position; Relevant Images and Results are Properly Labeled and Displayed ANESTHESIA Anesthesia Plans: Epidural Datetime: 11/22/2024 16:09 Membrane Status: Ruptured Membranes Ruptured Date/Time: 11/22/2024 16:09 Membranes Rupture Method: Artificial Amniotic Fluid Color: Clear Amniotic Fluid Amount: Moderate Datetime: 11/22/2024 15:00 Monitor Interventions for FHR: Ultrasound Adjusted Datetime: 11/22/2024 12:49 Vaginal Exam Comments: cook balloon out Datetime: 11/22/2024 02:17 Cervical Ripening Agents: Magana Balloon; Cytotec @ Datetime: 11/21/2024 21:33 RUQ Epigastric Pain: Denies
== END 2024-11-25 13:35 | disposition home or self-care (01) | DRG 806 ==
LOC: WFO 20:09 → FBP 20:12
PROVIDERS: ADMIT Nurse Practitioner Obstetrics & Gynecology; ATTEND Nurse Practitioner Obstetrics & Gynecology

== ENCOUNTER 2024-11-28 18:49 | Inpatient (IN) ==
--- NOTE | 2024-11-28 19:19 | ED Physician Documentation ---
History of Present Illness Stated complaint Stated Complaint: VISION CHANGES Chief complaint Chief Complaint: General History obtained from History obtained from: Patient Additonal information Additional information: 19-year-old female, G1 now P1, 5 days with concern for preeclampsia before she was induced for labor. Not on any meds. Developed spots in her vision today on both sides but otherwise feels fine. On check-in she is noted to be hypertensive in the range of 158/103. She had a nurse visit earlier in the day and it is noted that she had a CMP showing a AST of 91. Meds/Allgy Home Medications Ambulatory Orders Medication Instructions Recorded Confirmed vits no.126-ferrous fum 1 tab PO DAILY 05/26/24 11/28/24 28 mg iron-folic acid 800 mcg tablet (Classic ) labetalol 100 mg tablet 100 mg PO BID #60 tabs 11/25/24 11/28/24 Allergies Allergies Allergy/AdvReac Type Severity Reaction Status Date / Time Pork/Porcine Containing Allergy Respiratory Verified 11/28/24 19:01 Products PFSH Active Problems All Active Problems (Updated 11/28/24 @ 19:19 by Mendoza Coleman MD) Preeclampsia in period (Acute) Pre-eclampsia during in third trimester, antepartum (Acute) Isolated proteinuria (Acute) Supervision of normal first (Acute) Positive test (Acute) Medical History Medical History Encounter for other specified screening Urinary tract infection Depression Surgical History Surgical History History of bilateral breast reduction surgery Family History Family History Mother Cervical cancer Maternal grandmother Breast cancer Paternal grandmother Breast cancer Maternal grandfather Diabetes Paternal grandfather Diabetes Social History Social History Smoking Status: Never smoker Second hand tobacco smoke exposure: No Do you dip or chew tobacco?: No Do you vape?: No Living arrangement: At home Living Condition: With spouse/s.o. Relationship: Level: Independent Do you feel safe in your home environment?: Yes Suffered physical, verbal, emotional, or financial abuse?: No History of Abuse: No ETOH Use: None Substance Use: denies use Are you sexually active?: Yes Control Method: None Sexual Practice Notes: Currently Occupation: Homemaker. Previously a caregiver POLST Patient has POLST: No Exam Exam Vital Signs: Vital Signs x48h Temp Pulse Resp BP Pulse Ox 11/28/24 19:37 89 22 155/101 H 99 11/28/24 19:19 89 22 149/101 H 99 11/28/24 19:01 37.0 C 80 18 158/103 H 98 Constitutional normal general appearance and no apparent distress Eyes PERRL and EOMs intact bilaterally Respiratory breath sounds equal bilaterally, normal respiratory effort and clear to auscultation bilaterally Cardiovascular normal heart rate noted, regular rhythm noted and no murmur Gastrointestinal abdomen soft to palpation, nontender to palpation and nontender to percussion Neurology GCS 15 Results Vitals Vitals: Vital Signs - 24 hr 11/28/24 19:01 11/28/24 19:19 11/28/24 19:37 Temperature 37.0 C Temperature Source Oral Pulse Rate 80 89 89 Respiratory Rate 18 22 22 Blood Pressure 158/103 H 149/101 H 155/101 H O2 Saturation 98 99 99 Oxygen Delivery Method O2 Source Room air Room air Room air Pain Intensity 0 11/28/24 19:37 Temperature Temperature Source Pulse Rate Respiratory Rate Blood Pressure O2 Saturation Oxygen Delivery Method Room Air O2 Source Pain Intensity Oxygen O2 Source Room air Labs Labs: Laboratory Tests 11/28/24 19:16 WBC 5.1 RBC 3.71 L Hgb 10.4 L Hct 32.4 L MCV 87.3 MCH 28.0 MCHC 32.1 RDW 15.3 H Plt Count 362 MPV 8.4 Neut # (Auto) 2.5 Lymph # (Auto) 1.9 Curry # (Auto) 0.5 Eos # (Auto) 0.1 Baso # (Auto) 0.0 Absolute Nucleated RBC 0.00 Nucleated RBC % 0.0 Sodium 136 Potassium 3.7 Chloride 105 Carbon Dioxide 24 Anion Gap 7.0 BUN 9 Creatinine 0.6 Estimated GFR (MDRD) 153 Glucose 80 Calcium 9.0 Magnesium 1.7 Total Bilirubin 0.3 AST 100 H ALT 63 H Alkaline Phosphatase 111 Total Protein 6.9 Albumin 3.2 Globulin 3.7 Albumin/Globulin Ratio 0.9 L PD Medical Decision Making ED course ED course: 19-year-old G1 who is 5 days had features of preeclampsia in the prepartum peripartum timeframe but now has more symptoms with hypertension and elevated AST. After my initial evaluation I discussed the case with the on-call TUBE WRAPPER, Dr. Lara given concerns for preeclampsia and she agrees. Requested that I order 200 mg of p.o. labetalol but she would like to discuss magnesium with the patient before it is ordered. She will be over to talk to the patient. The patient and family are counseled as to the diagnosis and need for admission. This document was made in part using voice recognition software, while efforts are made to proofread this document, sound alike an grammatical errors may occur. Discharge Plan Discharge Patient Disposition: [facility] DC/Xfer Condition: Stable Clinical Impression: Preeclampsia in period Interventions: ED Admission Assessment Last Done: 11/28/24 20:30
[2024-11-28 19:21] LABS: BASOPHILS % (AUTO) 0.6 %; EOSINOPHILS # (AUTO) 0.1 10^3/uL (0.0-0.7); EOSINOPHILS % (AUTO) 2.3 %; HCT - HEMATOCRIT 32.4 % (37.0-47.0); HGB - HEMOGLOBIN 10.4 g/dL (12.0-16.0); LYMPHOCYTES # (AUTO) 1.9 10^3/uL (1.5-3.5); LYMPHOCYTES % (AUTO) 37.7 %; MEAN CORPUSCULAR HGB CONC 32.1 g/dL (32.0-36.0); MEAN CORPUSCULAR VOLUME 87.3 fL (81.0-99.0); MEAN PLATELET VOLUME 8.4 fL (7.9-10.8); MONOCYTES # (AUTO) 0.5 10^3/uL (0.0-1.0); MONOCYTES % (AUTO) 8.8 %; NEUTROPHILS # (AUTO) 2.5 10^3/uL (1.5-6.6); NEUTROPHILS % (AUTO) 49.2 %; PLT - PLATELET COUNT 362 10^3/uL (130-450); RED BLOOD COUNT 3.71 10^6/uL (4.20-5.40); RED CELL DISTRIBUTION WIDTH 15.3 % (12.0-15.0); WHITE BLOOD COUNT 5.1 x10^3/uL (4.8-10.8)
[2024-11-28 19:34] LABS: ALBUMIN 3.2 g/dL (3.2-5.5); ALBUMIN/GLOBULIN RATIO 0.9 (1.0-2.2); BILIRUBIN,TOTAL 0.3 mg/dL (0.2-1.0); CREATININE 0.6 mg/dL (0.6-1.3); MAGNESIUM 1.7 mg/dL (1.7-2.3); POTASSIUM 3.7 mmol/L (3.5-4.5); TOTAL PROTEIN 6.9 g/dL (6.4-8.9)
[2024-11-28] MEDS: LABETALOL 100 MG TABLET PO STA (19:35)
[2024-11-28] MEDS ORDERED: ONDANSETRON ODT 4 MG TABLET TL PRN (20:05)
[2024-11-28] MEDS ORDERED: CALCIUM CARBONATE CHEW 500 MG TABLET PO PRN (20:05)
[2024-11-28] MEDS ORDERED: LACTATED RINGERS 1,000 ML ONE (20:21)
[2024-11-28] MEDS: LACTATED RINGERS 1,000 ML IV SCH (20:35)
[2024-11-28] MEDS: MAGNESIUM SULFATE 4 GRAM 4 GM/50 ML BAG IV ONE (20:37)
--- NOTE | 2024-11-28 20:44 | HISTORY & PHYSICAL EXAMINATION ---
Admit History Visit Reason Visit Reason: Other (severe preeclampsia) Smoking Status: Never smoker Other Maternal History Other Maternal History: Devaughn is a 19 yo who is PPD#5 s/p who is admitted with preeclampsia with severe features. Devaughn was admitted at 36w6d for IOL for preeclampsia without severe features. At that time, she had mildly elevated blood pressures and protein:creatinine ratio of 4.2, slightly elevated ALT of 63. She had an with no laceration. She was discharged home on PPD#2 on labetalol 100mg BID. She was seen in clinic today for BP check and noted to have two mildly elevated blood pressures. Was sent for labs and AST elevated at 91. She notified her CNM this evening of spots in her vision and was instructed to come to the ED. Devaughn reports seeing black specks in her vision on and off since this afternoon. Denies RIVERA, upper abdominal pain. She reports that swelling has improved since discharge home. She denies CP, SOB. She was discharged home with rx for labetalol but reports [place] She reports bleeding is decreasing and minimal. She is bottle feeding due to her history of breast reduction surgery. PE: Vitals signs reviewed, BPs 140-150s/80-100s. Gen: NAD CV: RRR Resp: non labored respirations, CTAB, no crackles Abd: non distended, non tender Ext: only trace LE edema, no evidence of DVT Labs: CBC abd CMP reviewed from noon today and then again in ED this evening. Increasing AST/ALT noted (91/54 -> 100/63), Cr normal, plt normal A/P: 19 yo who is PPD#5 s/p who is admitted with preeclampsia with severe features. - Preeclampsia with severe features dx based on mildly elevated blood pressures, symptoms of vision changes, and elevated LFTs. - Recommended initiation of magnesium sulfate for seizure prophylaxis, plan to continue for 24hrs. Risks/benefits/side effects reviewed. - Will start labetalol 200mg BID - Will plan to repeat labs in the morning. - Discussed close monitoring of urine output, every 2 hours. OK for bolivar overnight if she prefers. Ney Lara MD HPI Current : Vital Signs Temperature 98.6 F 11/28/24 19:01 Pulse Rate 89 11/28/24 19:37 Respiratory Rate 22 11/28/24 19:37 Blood Pressure 155/101 H 11/28/24 19:37 O2 Saturation 99 11/28/24 19:37 Meds/Allgy Home Medications Ambulatory Orders Medication Instructions Recorded Confirmed vits no.126-ferrous fum 1 tab PO DAILY 05/26/24 11/28/24 28 mg iron-folic acid 800 mcg tablet (Classic ) labetalol 100 mg tablet 100 mg PO BID #60 tabs 11/25/24 11/28/24 Allergies Allergies Allergy/AdvReac Type Severity Reaction Status Date / Time Pork/Porcine Containing Allergy Respiratory Verified 11/28/24 19:01 Products PFSH Active Problems All Active Problems (Updated 11/28/24 @ 19:19 by Mendoza Coleman MD) Isolated proteinuria (Acute) Positive test (Acute) Pre-eclampsia during in third trimester, antepartum (Acute) Preeclampsia in period (Acute) Supervision of normal first (Acute) Medical History Medical History Encounter for other specified screening Urinary tract infection Depression Surgical History Surgical History History of bilateral breast reduction surgery Family History Family History Mother Cervical cancer Maternal grandmother Breast cancer Paternal grandmother Breast cancer Maternal grandfather Diabetes Paternal grandfather Diabetes Social History Social History Smoking Status: Never smoker Second hand tobacco smoke exposure: No Do you dip or chew tobacco?: No Do you vape?: No Living arrangement: At home Living Condition: With spouse/s.o. 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
[2024-11-28] MEDS: MAGNESIUM SULFATE IN WATER 20 GM/500 ML IV.SOLN IV SCH (21:05)
[2024-11-29] MEDS: CALCIUM GLUC 1,000MG/50ML-NACL 1,000 MG/50 ML BAG IV ONE (08:48)
[2024-11-29 09:33] LABS: HCT - HEMATOCRIT 30.9 % (37.0-47.0); MEAN CORPUSCULAR HEMOGLOBIN 28.6 pg (27.0-31.0); MEAN CORPUSCULAR HGB CONC 32.4 g/dL (32.0-36.0); MEAN CORPUSCULAR VOLUME 88.3 fL (81.0-99.0); MEAN PLATELET VOLUME 8.5 fL (7.9-10.8); RED BLOOD COUNT 3.5 10^6/uL (4.20-5.40); RED CELL DISTRIBUTION WIDTH 15.6 % (12.0-15.0); WHITE BLOOD COUNT 4.3 x10^3/uL (4.8-10.8)
[2024-11-29] MEDS: LABETALOL 100 MG TABLET PO SCH (09:47)
[2024-11-29 09:51] LABS: ALBUMIN 2.9 g/dL (3.2-5.5); ALBUMIN/GLOBULIN RATIO 0.9 (1.0-2.2); BILIRUBIN,TOTAL 0.7 mg/dL (0.2-1.0); CALCIUM 7.8 mg/dL (8.5-10.3); CREATININE 0.6 mg/dL (0.6-1.3); POTASSIUM 3.6 mmol/L (3.5-4.5); TOTAL PROTEIN 6.3 g/dL (6.4-8.9)
--- NOTE | 2024-11-29 11:54 | PHARMACY PROGRESS NOTE ---
Best Possible Medication History Admit Date and Time: 11/28/241950 Home Medications Medication Instructions Recorded Confirmed Type vits no.126-ferrous fum 1 tab PO DAILY 05/26/24 11/29/24 History 28 mg iron-folic acid 800 mcg tablet (Classic ) labetalol 100 mg tablet 100 mg PO BID #60 tabs 11/25/24 11/29/24 Rx Processed by: Pharmacy (Medication Reconciliation completed by Surface Water TechnicianArina) Medications reviewed in ED?: No Medication History completed: Yes Patient Interview: Completed Secondary Source(s): Insurance records [facility] [place] Statement: As the person ultimately responsible for medication therapy, providers are able to order a medication from an existing home medication list in [facility] via the "Reconcile Routine" prior to Confirmation of that medication by it support technician. Such practice is discouraged except when the physician, in their clinical judgment, deems that a medical need exists for a medication without regard to previous use.
--- NOTE | 2024-11-29 12:43 | PROVIDER PROGRESS NOTE ---
Subjective Subjective Subjective: Patient doing much better. Visual symptoms have resolved. Blood pressure has stabilized. Feeling much better today. Current Medications Current Medications Current Medications: Current Medications Generic Name Dose Route Start Last Admin Trade Name Kayleigh PRN Reason Stop Dose Admin Calcium Carbonate/Glycine 1,000 mg 11/28/24 20:05 Calcium Carbonate Chew 500 Mg Tablet PO Q6HR PRN Heartburn Magnesium Sulfate 20 gm in 500 mls @ 50 mls/hr 11/28/24 21:00 11/29/24 06:24 Magnesium Sulf 20 G/500 Ml Bag IV 50 mls/hr .Q10H JEFF Administration Lactated Ringer's 1,000 mls @ 75 mls/hr 11/28/24 21:00 11/28/24 20:35 Lr IV 25 mls/hr .[id number] JEFF Administration Labetalol HCl 200 mg 11/29/24 09:00 11/29/24 09:47 Labetalol 100 Mg Tablet PO 200 mg DAILY JEFF Administration Ondansetron HCl 4 mg 11/28/24 20:05 Ondansetron Odt 4 Mg Tablet TL Q4HR PRN Nausea / Vomiting Objective Vital Signs/Intake & Output Vital Signs: Vital Signs x48h Temp Pulse Resp BP Pulse Ox 11/29/24 10:00 36.6 C 76 16 134/84 H 99 11/29/24 07:33 36.4 C L 81 16 116/79 11/29/24 05:00 79 18 131/76 H Intake & Output: Intake & Output 11/26/24 11/27/24 11/28/24 11/29/24 23:59 23:59 23:59 23:59 Intake Total 225 / 225 1020 / 1020 Output Total 450 / 450 2675 / 2675 Balance -225 / -225 -1655 / -1655 Weight (kg) 256 lb 9.889 oz Objective General Appearance: positive No acute distress and Alert Respiratory: positive Chest non-tender, No respiratory distress and Breath sounds nml Cardiovascular: positive Regular rate & rhythm and No murmur Abdomen: positive Non-tender and No distention Extremities: positive Nml appearance; negative Calf tenderness Neurologic/Psychiatric: positive Oriented x3 Reflexes: Knee (R): 1+ (No clonus) and Knee (L): 2+ (No Clonus) Lab Results 11/29/24 09:14 11/29/24 09:14 Other Labs: Lab Results x24hrs 11/29/24 11/28/24 Range/Units 09:14 19:16 WBC 4.3 L 5.1 (4.8-10.8) x10^3/uL RBC 3.50 L 3.71 L (4.20-5.40) 10^6/uL Hgb 10.0 L 10.4 L (12.0-16.0) g/dL Hct 30.9 L 32.4 L (37.0-47.0) % MCV 88.3 87.3 (81.0-99.0) fL MCH 28.6 28.0 (27.0-31.0) pg MCHC 32.4 32.1 (32.0-36.0) g/dL RDW 15.6 H 15.3 H (12.0-15.0) % Plt Count 359 362 (130-450) 10^3/uL MPV 8.5 8.4 (7.9-10.8) fL Neut # (Auto) 2.5 (1.5-6.6) 10^3/uL Lymph # (Auto) 1.9 (1.5-3.5) 10^3/uL Humphreys # (Auto) 0.5 (0.0-1.0) 10^3/uL Eos # (Auto) 0.1 (0.0-0.7) 10^3/uL Baso # (Auto) 0.0 (0.0-0.1) 10^3/uL Absolute Nucleated RBC 0.00 x10^3/uL Nucleated RBC % 0.0 /100WBC Sodium 137 136 (135-145) mmol/L Potassium 3.6 3.7 (3.5-4.5) mmol/L Chloride 105 105 (101-111) mmol/L Carbon Dioxide 25 24 (21-32) mmol/L Anion Gap 7.0 7.0 (6-13) BUN 7 9 (6-20) mg/dL Creatinine 0.6 0.6 (0.6-1.3) mg/dL Estimated GFR (MDRD) 153 153 (>89) Glucose 109 H 80 (74-104) mg/dL Calcium 7.8 L 9.0 (8.5-10.3) mg/dL Magnesium 1.7 (1.7-2.3) mg/dL Total Bilirubin 0.7 0.3 (0.2-1.0) mg/dL AST 76 H 100 H (10-42) IU/L ALT 56 63 H (10-60) IU/L Alkaline Phosphatase 100 111 (42-121) IU/L Total Protein 6.3 L 6.9 (6.4-8.9) g/dL Albumin 2.9 L 3.2 (3.2-5.5) g/dL Globulin 3.4 3.7 (2.1-4.2) g/dL Albumin/Globulin Ratio 0.9 L 0.9 L (1.0-2.2) Assessment/Plan Problem List (1) Preeclampsia in period: Impression: Doing much better today. Continue magnesium sulfate for 24 hours. Labs show improvement. Blood pressure has normalized. After 24 hours, we will keep overnight and observe for resolution. Very reassuring that symptoms have gone away. Continue labetalol, especially upon discharge.
[2024-11-29] MEDS: ACETAMINOPHEN 500 MG TABLET PO PRN (15:08)
--- NOTE | 2024-11-30 06:57 | PROVIDER PROGRESS NOTE ---
Current Medications Current Medications Current Medications: Current Medications Generic Name Dose Route Start Last Admin Trade Name Bowenq PRN Reason Stop Dose Admin Acetaminophen 1,000 mg 11/29/24 14:53 11/29/24 15:08 Acetaminophen 500 Mg Tablet PO 1,000 mg Q6HR PRN Administration Pain or Fever > 38C (100.4F) Calcium Carbonate/Glycine 1,000 mg 11/28/24 20:05 Calcium Carbonate Chew 500 Mg Tablet PO Q6HR PRN Heartburn Magnesium Sulfate 20 gm in 500 mls @ 50 mls/hr 11/28/24 21:00 11/29/24 21:05 Magnesium Sulf 20 G/500 Ml Bag IV Infused .Q10H JEFF Infusion Lactated Ringer's 1,000 mls @ 75 mls/hr 11/28/24 21:00 11/29/24 21:05 Lr IV Infused .[id number] JEFF Infusion Labetalol HCl 200 mg 11/29/24 09:00 11/29/24 09:47 Labetalol 100 Mg Tablet PO 200 mg DAILY JEFF Administration Ondansetron HCl 4 mg 11/28/24 20:05 Ondansetron Odt 4 Mg Tablet TL Q4HR PRN Nausea / Vomiting Objective Vital Signs/Intake & Output Vital Signs: Vital Signs x48h Temp Pulse Resp BP Pulse Ox 11/30/24 06:15 79 16 121/88 99 11/30/24 02:05 36.5 C 74 20 139/93 H 98 11/30/24 00:00 36.7 C 80 18 146/91 H 99 Intake & Output: Intake & Output 11/27/24 11/28/24 11/29/24 11/30/24 23:59 23:59 23:59 23:59 Intake Total 225 / 225 3426 / 3426 1400 / 1400 Output Total 450 / 450 5700 / 5700 2650 / 2650 Balance -225 / -225 -2274 / -2274 -1250 / -1250 Weight (kg) 256 lb 9.889 oz Lab Results 11/29/24 09:14 11/29/24 09:14 Other Labs: Lab Results x24hrs 11/29/24 Range/Units 09:14 WBC 4.3 L (4.8-10.8) x10^3/uL RBC 3.50 L (4.20-5.40) 10^6/uL Hgb 10.0 L (12.0-16.0) g/dL Hct 30.9 L (37.0-47.0) % MCV 88.3 (81.0-99.0) fL MCH 28.6 (27.0-31.0) pg MCHC 32.4 (32.0-36.0) g/dL RDW 15.6 H (12.0-15.0) % Plt Count 359 (130-450) 10^3/uL MPV 8.5 (7.9-10.8) fL Sodium 137 (135-145) mmol/L Potassium 3.6 (3.5-4.5) mmol/L Chloride 105 (101-111) mmol/L Carbon Dioxide 25 (21-32) mmol/L Anion Gap 7.0 (6-13) BUN 7 (6-20) mg/dL Creatinine 0.6 (0.6-1.3) mg/dL Estimated GFR (MDRD) 153 (>89) Glucose 109 H (74-104) mg/dL Calcium 7.8 L (8.5-10.3) mg/dL Total Bilirubin 0.7 (0.2-1.0) mg/dL AST 76 H (10-42) IU/L ALT 56 (10-60) IU/L Alkaline Phosphatase 100 (42-121) IU/L Total Protein 6.3 L (6.4-8.9) g/dL Albumin 2.9 L (3.2-5.5) g/dL Globulin 3.4 (2.1-4.2) g/dL Albumin/Globulin Ratio 0.9 L (1.0-2.2) Assessment/Plan Problem List (1) Preeclampsia in period:
[2024-11-30 07:18] LABS: HCT - HEMATOCRIT 33.4 % (37.0-47.0); HGB - HEMOGLOBIN 10.4 g/dL (12.0-16.0); MEAN CORPUSCULAR HEMOGLOBIN 27.7 pg (27.0-31.0); MEAN CORPUSCULAR HGB CONC 31.1 g/dL (32.0-36.0); MEAN CORPUSCULAR VOLUME 89.1 fL (81.0-99.0); MEAN PLATELET VOLUME 8.3 fL (7.9-10.8); RED BLOOD COUNT 3.75 10^6/uL (4.20-5.40); RED CELL DISTRIBUTION WIDTH 15.7 % (12.0-15.0); WHITE BLOOD COUNT 5.3 x10^3/uL (4.8-10.8)
[2024-11-30 07:23] LABS: ALBUMIN 3.2 g/dL (3.2-5.5); ALBUMIN/GLOBULIN RATIO 0.9 (1.0-2.2); BILIRUBIN,TOTAL 0.4 mg/dL (0.2-1.0); CALCIUM 8.5 mg/dL (8.5-10.3); CREATININE 0.6 mg/dL (0.6-1.3); POTASSIUM 3.8 mmol/L (3.5-4.5); TOTAL PROTEIN 6.7 g/dL (6.4-8.9)
--- NOTE | 2024-11-30 16:06 | Discharge Summary ---
Discharge Summary Admit Date: 11/28/24 Discharge Date: 11/30/24 Discharging Provider: Den Meeks DIAGNOSES Admission Diagnoses: Preeclampsia with severe features Discharge Diagnoses with Status of Each Condition: Same: Stable HPI History of Present Illness: Patient not having any more neurologic symptoms. Vision changes have resolved. No headache, right upper quadrant pain. Constitutional: alert, no acute distress, well hydrated, well developed, well nourished, appropriate dress. Cardiovascular: Regular rate and rhythm. Respiratory: no respiratory distress. Abdomen: nondistended, nontender, no guarding. Psych: affect and mood appropriate, normal interaction, good eye contact. Extremities: 1+ reflexes, no clonus. HOSPITAL COURSE Hospital Course: Patient was admitted for preeclampsia with severe features. Had neurologic symptoms persistent on arrival followed by elevation in laboratory values. Blood pressure was never in the severe range, but did peak at 158/103. Transaminases were normal on discharge but increased to over twice the normal value when checked on admission. These essentially normalized by 48 hours after magnesium was initiated. She was observed for approximately 24 hours after the magnesium was discontinued without problem. She will continue her labetalol outpatient, for a blood pressure check in 3 days. ALLERGIES Allergies Allergy/AdvReac Type Severity Reaction Status Date / Time Pork/Porcine Containing Allergy Respiratory Verified 11/28/24 19:01 Products MEDICATIONS Ambulatory Orders Medication Instructions Recorded Confirmed vits no.[id number] fum 1 tab PO DAILY 05/26/24 11/29/24 28 mg iron-folic acid 800 mcg tablet (Classic ) labetalol 100 mg tablet 100 mg PO BID #60 tabs 11/25/24 11/29/24 PHYSICAL EXAM AT DISCHARGE Vital Signs: Vital Signs x48h Temp Pulse Resp BP Pulse Ox 11/30/24 12:20 36.8 C 75 20 137/82 H 99 11/30/24 09:00 36.7 C 78 17 122/76 99 LABS 11/30/24 06:50 11/30/24 06:50 FOLLOW UP Follow Up: With [facility] women[facility] care in 3 days. TIME SPENT Time Spent in Discharge (Minutes): 30 Discharge Plan Discharge Patient Disposition: Home, Self Care Condition: Stable Medically Cleared Date:: 11/30/24 Prescriptions: Continued labetalol 100 mg tablet 100 mg PO BID Qty: 60 2RF Patient Comments: Patient hasn't picked up yet. Classic 28 mg iron- 800 mcg tablet 1 tab PO DAILY Diet: Regular Print Language: Samoan Patient Instructions: Preeclampsia Stand Alone Forms: PCP List
[2024-11-30 16:58] VITALS: BP 150/91; TEMP 98.4; O2SAT 100
--- NOTE | 2024-11-30 18:37 | Labor Flowsheet ---
Labor Flowsheet Datetime Report Generated by CPN: 11/30/2024 18:37 Datetime: 11/25/2024 09:16 VITAL SIGNS NBP Sys/Amina/Mean (mmHg): 131 : 79 : 91 Pulse: 93 Datetime: 11/24/2024 16:49 SpO2 (%): 98 Datetime: 11/23/2024 08:04 Temperature (C): 36.5 Datetime: 11/23/2024 07:35 Medication Comments: txa up Datetime: 11/23/2024 07:31 Stage of : Recovery Datetime: 11/23/2024 07:30 Frequency (min): 1-2.5 Duration (sec): 60-80 Pattern: Normal: <= 5 Contractions in 10 Minutes ASSESSMENT A Monitor Mode: External US FHR Baseline Rate : 135 Variability: Moderate 6-25 bpm Accelerations: 15X15 Decelerations: None Category: Category I LaborFlag: Labor Datetime: 11/23/2024 07:15 UTERINE ACTIVITY Monitor Mode: External Datetime: 11/23/2024 07:10 Amniotic Fluid Odor: Normal Datetime: 11/23/2024 07:09 STAGE 2 Pushing: Urge to Push Pushing Position: Pushing with Contractions Pushing Progress: Descent with Pushing Datetime: 11/23/2024 07:07 Patient Care Comments: Magana out, 50ml urine Datetime: 11/23/2024 07:04 Communication Comments: C Datetime: 11/23/2024 07:01 VAGINAL EXAM Dilatation (cm): 10.0 Effacement (%): 100 Station: 3 Exam by: CNM B Datetime: 11/23/2024 06:55 Comments: Intermittent variables noted with peak of UCs. CNM Burckhardt will be in to assess pt wit hin half hour unless pt awakens and has urge to push. Datetime: 11/23/2024 06:30 Quality: Moderate Resting Tone (Palpate): Relaxed Pitocin Checklist: At Least 1 Acceleration of 15 bpm x 15 Seconds in 30 Minutes or Adequate Variabi lity; No More than 1 Late Deceleration Occurred in Past 30 Minutes; No More than 2 Variable Decelerat ions > 60 Seconds in Duration and decreasing >60 bpm in 30 minutes; No More than 5 Uterine Contractio ns in 10 Minutes for any 20 Minute Interval; Uterus Palpates Soft between Contractions FHR Baseline Changes: No Baseline Change Pain Goal: 4 Anesthesia Level Check: T8- Ribs Datetime: 11/23/2024 06:00 Pain Assessment Comments: snoring softly Datetime: 11/23/2024 05:47 Anesthesia Comments: Partial loading dose/bolus given Datetime: 11/23/2024 05:42 Patient Position/Activity: Left Tilt Datetime: 11/23/2024 05:34 Epidural Procedure: Test Dose Datetime: 11/23/2024 05:30 Contraction Comments: UCs Q 2-3 via palpation and pt's crying out with UCs Pain Relief Measures: 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 Pain management reviewed. Meds given for naus ea; AMP infusing. Datetime: 11/23/2024 04:55 Antiemetics/Antacids: Zofran (mg) @ 4mg Datetime: 11/23/2024 04:50 Antibiotics: Ampicillin IV 1 Gm Datetime: 11/23/2024 04:33 Pain Location: Back; Right Groin; Left Groin; Right Hip COMMUNICATION Communication: Provider at Bedside Datetime: 11/23/2024 04:19 Monitor Interventions for UA: [place] Adjusted Datetime: 11/23/2024 03:59 PAIN Pain Scale: 5 Pain Presence: Intermittent Pain Type: Contraction Datetime: 11/23/2024 03:44 Respirations: 20 Temperature Route: Oral Datetime: 11/23/2024 03:21 Epidural Procedure Other: Cath Removed Datetime: 11/23/2024 02:22 MEDICATIONS Pitocin (milliunits): Increased to @ Datetime: 11/23/2024 00:00 Resting Tone IUP (mmHg): 5 [place] Units (mmHg): 260 Datetime: 11/22/2024 20:00 MATERNAL ASSESSMENT Level of Consciousness: Alert DTR's/Clonus: DTRs 2+ Headache: Denies Breath Sounds, Left: Clear and Equal Breath Sounds, Right: Clear and Equal Nausea/Vomiting: Denies Datetime: 11/22/2024 18:17 Vaginal Bleeding: Normal Show Cervix, Consistency: Soft Cervix, Position: Anterior PATIENT CARE Procedures: Sterile Vag Exam Hygiene: Marcela Care; Underpad Changed; Peripad Changed I/O Interventions: Maagna Cath Inserted Datetime: 11/22/2024 16:37 Procedure Verify: Correct Patient Identity; Correct Side and Site are Marked; Accurate Procedure Co nsent Form; Agreement on Procedure to be Done; Correct Patient Position; Relevant Images and Results are Properly Labeled and Displayed ANESTHESIA Anesthesia Plans: Epidural Datetime: 11/22/2024 16:09 Membrane Status: Ruptured Membranes Ruptured Date/Time: 11/22/2024 16:09 Membranes Rupture Method: Artificial Amniotic Fluid Color: Clear Amniotic Fluid Amount: Moderate Datetime: 11/22/2024 15:00 Monitor Interventions for FHR: Ultrasound Adjusted Datetime: 11/22/2024 12:49 Vaginal Exam Comments: cook balloon out Datetime: 11/22/2024 02:17 Cervical Ripening Agents: Magana Balloon; Cytotec @ Datetime: 11/21/2024 21:33 RUQ Epigastric Pain: Denies
== END 2024-11-30 18:00 | disposition home or self-care (01) | DRG 776 ==
LOC: ED 18:49 → FBP 19:51
PROVIDERS: ADMIT Obstetrics & Gynecology; ATTEND Obstetrics & Gynecology